=== PATIENT | male | born 1980 | race Caucasian/White ===

== ENCOUNTER 2019-01-29 06:59 | Emergency (ER) | payer MEDICAID, OTHER ==
[2019-01-29] MEDS ORDERED: LIDOCAINE 1% (MDV) 20 ML INJ SC (08:00)
== END 2019-01-29 09:16 | disposition home or self-care (01) ==
LOC: E/R 06:59
DX: S61.212A Laceration without foreign body of right middle finger without damage to nail, initial encounter (principal); F10.129 Alcohol abuse with intoxication, unspecified; W26.8XXA Contact with other sharp object(s), not elsewhere classified, initial encounter; Y92.9 Unspecified place or not applicable
CPT/HCPCS: 73130; 73130-RT; 99283-25